=== PATIENT | female | born 1975 | race Caucasian/White ===

== ENCOUNTER 2018-12-25 10:21 | Emergency (ER) | payer OTHER ==
[~2018-12-25] VITALS: Ht 160 cm; Wt 131.5 kg
[~2018-12-25 10:21] MED LIST: SKELAXIN800 MG PO
== END 2018-12-25 11:54 | disposition home or self-care (01) ==
LOC: ER 10:21
DX: M79.671 Pain in right foot (principal)

== ENCOUNTER 2021-05-24 15:18 | Emergency (ER) | payer OTHER ==
[~2021-05-24] VITALS: Ht 157.5 cm; Wt 139.3 kg
[2021-05-24] MEDS ORDERED: ANALPRAM HC 2.530 GM RECTAL (20:04)
== END 2021-05-24 20:44 | disposition home or self-care (01) ==
LOC: ER 15:18
DX: R10.32 Left lower quadrant pain (principal); K64.8 Other hemorrhoids